=== PATIENT | female | born 1985 | race African-American/Black ===

== ENCOUNTER 2018-09-06 06:03 | Day surgery (SDC) | payer BC ==
[2018-09-06 07:48] VITALS: BMI 24.3
[2018-09-06 07:51] VITALS: BP 123/76; TEMP 98.3
[2018-09-06] MEDS ORDERED: Lactated Ringer's 1,000 ML IV SCH ×4 (09:00→09:15)
[2018-09-06 09:02] LABS: FFN Internal QC Analyzer PASS (PASS); FFN Internal QC Cassette PASS (PASS); Fetal Fibronectin Negative (Negative)
[2018-09-06] MEDS ORDERED: NIFEdipine 10 MG CAP PO PRN (09:27)
[2018-09-06] MEDS ORDERED: NIFEdipine 10 MG CAP PO SCH (09:27)
[2018-09-06] MEDS: NIFEdipine 10 MG CAP PO SCH ×2 (09:37→10:12)
--- NOTE | 2018-09-06 11:16 | PRG ---
DATE OF SERVICE: 09/06/2018 TIME OF SERVICE: 1015 hours. HISTORY OF PRESENT ILLNESS: Ms. Trevino is a 33-year-old, 1, para 0, at approximately 31 weeks' gestation by [facility], who [place] care from [place]. She has an uncomplicated except for a fibroid noted. She presents in town for a baby shower complaining of contractions. She denies rupture of membranes, she denies vaginal discharge, she denies bleeding. She reports an active fetus. FARM OPERATOR HISTORY: As noted. The patient reports that she had a normal 3-hour GTT, has had an otherwise uncomplicated , except for the fibroid noted on ultrasound. PAST MEDICAL HISTORY: None. PAST SURGICAL HISTORY: None. ALLERGIES: DENIES. MEDICATIONS: vitamins. SOCIAL HISTORY: Denies tobacco, alcohol, or drug abuse. FAMILY HISTORY: Noncontributory. REVIEW OF SYSTEMS: Noncontributory. PHYSICAL EXAMINATION: GENERAL: White female in no acute distress. VITAL SIGNS: Blood pressure 110/82, pulse 85, respirations 18, temperature 98.4. HEENT: Within normal limits. LUNGS: Clear to auscultation bilaterally. HEART: Regular rate and rhythm. ABDOMEN: Soft and nontender with occasional indentable contractions. Fundal height is 31 cm. FHTs 140s. Vulvar lesions. Vagina without discharge. Cervix closed long and high. Cephalic presentation. EXTREMITIES: No clubbing, cyanosis, or edema. LABORATORY DATA: fibronectin negative. CLINICAL COURSE: The patient was noted to have contractions q.3 to 4 minutes upon presentation. P.o. hydration decreased to q.5, but did not eliminate them. The patient received IV fluids and Procardia per protocol with two doses. Contractions spaced out to approximately q.10 minutes. They are soft and indentable which show upon the monitor due to the patient's thin body hiatus. IMPRESSION: Uterine irritability without evidence of labor. Negative fibronectin at 31 weeks' gestation with uterine fibroid. No evidence of fibroid degeneration or labor. PLAN: Discharge home. ER precautions. The patient is in town for the next 36 to 48 hours and will re-present to Labor and Delivery unit if contractions increase or other signs or symptoms of labor present. Job ID: [id number]
== END 2018-09-06 10:40 | disposition home health service (06) ==
LOC: SCSER 06:03 → ERS 06:03 → L&D 07:25 → UNDOADMOB 07:25 → EDSTATUS 08:57 → L&D/OP 09:19
PROVIDERS: ATTEND Emergency Medicine
DX: O47.03 False labor before 37 completed weeks of gestation, third trimester (principal); O34.13 Maternal care for benign tumor of corpus uteri, third trimester; Z3A.31 31 weeks gestation of pregnancy
CPT/HCPCS: 82731; 96360; 96361; 99284